=== PATIENT | female | born 1950 | race Caucasian/White ===

== ENCOUNTER → 2021-08-30 | Day surgery (SDC) | payer MEDICARE, BC ==
[~2021-08-30] MED LIST: Ketamine 200 MG/20 ML MDV ONE; Propofol 200 MG/20 ML SDV ONE; fentaNYL 100 MCG/2 ML SDV ONE
[2021-08-30] MEDS: Lactated Ringers 1,000 ML IV SCH (09:29)
== END ==
LOC: CC.SDS 09:14
PROVIDERS: ATTEND Family Medicine
DX: R19.4 Change in bowel habit (principal); R19.5 Other fecal abnormalities; E78.5 Hyperlipidemia, unspecified; I10 Essential (primary) hypertension; E55.9 Vitamin D deficiency, unspecified; E66.9 Obesity, unspecified; M85.80 Other specified disorders of bone density and structure, unspecified site; Z79.899 Other long term (current) drug therapy; Z80.0 Family history of malignant neoplasm of digestive organs; Z68.38 Body mass index [BMI] 38.0-38.9, adult
CPT/HCPCS: J2704; J3010; J7120

== ENCOUNTER 2022-10-05 13:12 | Emergency (ER) | payer MEDICARE, BC ==
[2022-10-05 13:46] LABS: BASOPHILS ABSOLUTE AUTO 0.03 10^3/uL (0.00-0.50); BASOPHILS PERCENT AUTO 0.3 % (0-1); EOSINOPHILS PERCENT AUTO 3.7 % (0-6); HEMATOCRIT 40.9 % (37.0-47.0); HEMOGLOBIN 13.5 g/dL (12.0-16.0); IMMATURE GRAN ABSOLUTE AUTO 0.02 10^3/uL (0.00-0.49); IMMATURE GRAN PERCENT AUTO 0.2 % (0.0-4.9); LYMPHOCYTES ABSOLUTE AUTO 2.82 10^3/uL (0.60-5.00); LYMPHOCYTES PERCENT AUTO 26.1 % (24-44); MEAN CORPUSCULAR HEMOGLOBIN 28.8 pg (27.0-32.0); MEAN CORPUSCULAR VOLUME 87.2 fL (83.0-97.0); MONOCYTES ABSOLUTE AUTO 0.66 10^3/uL (0.00-1.50); MONOCYTES PERCENT AUTO 6.1 % (0-10); NEUTROPHILS ABSOLUTE AUTO 6.89 x10^3/uL (1.80-8.00); NEUTROPHILS PERCENT AUTO 63.6 % (41-71); PLATELET COUNT,PLT 304 10^3/uL (150-400); RED BLOOD CELL COUNT 4.69 x10^6/uL (4.00-5.50); WHITE BLOOD CELL COUNT,WBC 10.8 10^3/uL (4.0-11.0)
[2022-10-05] MEDS ORDERED: Iopamidol 755 Mg/ML 100 ML Bottle IVPUSH ONE (13:51)
[2022-10-05 13:58] LABS: ALBUMIN 3.2 g/dL (3.4-5.0); BILIRUBIN TOTAL 0.2 mg/dL (0.0-1.0); C-REACTIVE PROTEIN 0.66 mg/dL (<=0.30); CREATININE 0.7 mg/dL (0.6-1.0); EST CRCL DRUG DOSING (CG) 67.29 mL/min; POTASSIUM,K 3.6 mEq/L (3.5-5.0); PROTEIN TOTAL,TP 7.9 g/dL (6.4-8.2)
[2022-10-05] MEDS ORDERED: Piperacillin/Tazobactam 4.5 GM in Sodium Chloride 0.9% 100 ML IV ONE (15:47)
[2022-10-05] MEDS ORDERED: Dexamethasone 4 MG Tab PO ONE (15:47)
== END 2022-10-05 16:30 | disposition home or self-care (01) ==
LOC: CC.ED 13:12
DX: J03.90 Acute tonsillitis, unspecified (principal); E78.00 Pure hypercholesterolemia, unspecified; Z79.899 Other long term (current) drug therapy
CPT/HCPCS: 36415; 70491; 80053; 85025; 86140; 96365; 99284; 99284-25; J2543; J3490; J8540; Q9967

== ENCOUNTER 2024-10-21 23:04 | Emergency (ER) | payer MEDICARE, BC ==
[2024-10-21 23:39] LABS: BASOPHILS ABSOLUTE AUTO 0.05 10^3/uL (0.00-0.50); BASOPHILS PERCENT AUTO 0.4 % (0-1); EOSINOPHILS ABSOLUTE AUTO 0.02 10^3/uL (0.00-1.50); EOSINOPHILS PERCENT AUTO 0.2 % (0-6); IMMATURE GRAN ABSOLUTE AUTO 0.01 10^3/uL (0.00-0.49); IMMATURE GRAN PERCENT AUTO 0.1 % (0.0-4.9); LYMPHOCYTES ABSOLUTE AUTO 2.18 10^3/uL (0.60-5.00); LYMPHOCYTES PERCENT AUTO 18.0 % (24-44); MONOCYTES ABSOLUTE AUTO 0.65 10^3/uL (0.00-1.50); MONOCYTES PERCENT AUTO 5.4 % (0-10); NEUTROPHILS ABSOLUTE AUTO 9.22 x10^3/uL (1.80-8.00); NEUTROPHILS PERCENT AUTO 75.9 % (41-71); PLATELET COUNT,PLT 270 10^3/uL (150-400); RED BLOOD CELL COUNT 4.94 x10^6/uL (4.00-5.50); WHITE BLOOD CELL COUNT,WBC 12.1 10^3/uL (4.0-11.0)
[2024-10-21 23:41] LABS: APPEARANCE,URINE CLEAR (CLEAR); GLUCOSE,URINE NEGATIVE (NEGATIVE); OCCULT BLOOD,URINE NEGATIVE (NEGATIVE)
[2024-10-21 23:53] LABS: ALANINE AMINOTRANSFERASE,ALT 42 U/L (12-78); ASPARTATE AMNIOTRANSFERASE,AST 26 U/L (15-37); BILIRUBIN TOTAL 0.4 mg/dL (0.0-1.0); BLOOD UREA NITROGEN,BUN 21 mg/dL (7-18); CARBON DIOXIDE,CO2 27 mmol/L (21-32); CHLORIDE,CL 100 mEq/L (98-106); CREATININE 0.8 mg/dL (0.6-1.0); EST CRCL DRUG DOSING (CG) 54.89 mL/min; GLUCOSE RANDOM 120 mg/dL (75-99); POTASSIUM,K 3.5 mEq/L (3.5-5.0); PROTEIN TOTAL,TP 7.9 g/dL (6.4-8.2); SODIUM,NA 137 mEq/L (136-145)
[2024-10-21 23:54] LABS: ESTIMATED GFR 78 mL/min (>=60)
[2024-10-22] MEDS: Iopamidol 755 Mg/ML 100 ML Bottle IVPUSH ONE (00:22)
== END 2024-10-22 01:16 | disposition home or self-care (01) ==
LOC: CC.ED 23:04
DX: R10.32 Left lower quadrant pain (principal); E78.00 Pure hypercholesterolemia, unspecified; Z79.899 Other long term (current) drug therapy
CPT/HCPCS: 36415; 74177; 80053; 81003; 83690; 85025; 86140; 99284; Q9967